=== PATIENT | female | born 1950 | race Caucasian/White ===

== ENCOUNTER → 2016-04-01 | Outpatient (CLI) | payer BC ==
[2016-04-01 18:09] VITALS: BP 107/67
== END ==
LOC: MHUC 17:02
PROVIDERS: ATTEND Physician Assistant Medical
DX: J40 Bronchitis, not specified as acute or chronic (principal)
CPT/HCPCS: 99213

== ENCOUNTER 2016-04-05 10:31 | Inpatient (IN) | payer BC, MEDICARE ==
[~2016-04-05] VITALS: Ht 157.5 cm; Wt 54.7 kg
[2016-04-05] MEDS ORDERED: ONDANSETRON 2 MG/ML (Z0FRAN) 2 ML VIAL IV PRN (10:45)
[2016-04-05] MEDS ORDERED: ACETAMINOPHEN 325 MG TAB (TYLENOL) PO PRN (10:45)
[2016-04-05] MEDS ORDERED: IBUPROFEN 600 MG (MOTRIN) TAB PO PRN (10:45)
[2016-04-05 10:58] VITALS: BP 109/68
[2016-04-05] MEDS ORDERED: POTASSIUM CL IVPB 50 ML IV ONE (11:00)
[2016-04-05] MEDS ORDERED: cefTRIAXone SODIUM 1,000 MG in SODIUM CHLORIDE 50 ML IV SCH (11:00)
[2016-04-05 11:01] VITALS: BP 109/68
--- NOTE | 2016-04-05 11:45 | NUR ---
Pt arrives per w/c from office for admission of pneumonia & low potassium. Pt alert, oriented x 4, speech clear, able to transfer independently to bed. States "has been feeling ill off & on for 2 weeks, and I'm just not getting better". Lungs clear, diminished, no wheezing heard. IV began into right hand w/difficulty. Pt states she does not use oxygen or respiratory equipment at home, normally very active. Admission assessment completed, pt oriented to room and call light. Will call for needs.
[2016-04-05] MEDS ORDERED: AZITHROMYCIN VIAL 500 MG in SODIUM CHLORIDE 250 ML IV SCH (12:00)
[2016-04-05] MEDS: POTASSIUM CHLORIDE ER 10 MEQ CAPSULE PO SCH ×2 (12:41→17:45)
--- NOTE | 2016-04-05 13:48 | NUR ---
IS instructed, Pt achieves 1500 ml with good effort and technique. She understands the importance of IS and reasons to continue on her own.
[2016-04-05 15:44] VITALS: BP 109/62
--- NOTE | 2016-04-05 16:23 | NUR ---
MED REC COMPLETE--current med list obtained from external med history application, patient interview, and list from patient's PCP ([id number]). Completed by Addie Mercer, Pharm. D. Candidate 2017.
--- NOTE | 2016-04-05 19:37 | NUR ---
Patient has remained on room air throughout the shift.
[2016-04-05 20:21] VITALS: BP 116/63
[2016-04-06 00:22] VITALS: BP 122/74
[2016-04-06 03:41] VITALS: BP 102/68
--- NOTE | 2016-04-06 06:17 | NUR ---
Uneventful shift leader. Pt rests w/o complaints. NS infusing without difficulty. Resp even and non labored on RA. Intermittent cough noted.
[2016-04-06 06:43] LABS: BASOPHILS % (AUTO) 0 % (0-2); EOSINOPHILS # (AUTO) 0.1 10^3uL; EOSINOPHILS % (AUTO) 1 % (0-4); LYMPHOCYTES # (AUTO) 1.3 X10^3; MEAN CORPUSCULAR HEMOGLOBIN 29.9 PG (26.0-34.0); MEAN CORPUSCULAR HGB CONC 34.9 g/dL (31.0-37.0); MEAN CORPUSCULAR VOLUME 86 FL (80-100); MEAN PLATELET VOLUME 10.1 FL (6.0-9.5); MONOCYTES # (AUTO) 1.5 X10^3; MONOCYTES % (AUTO) 13 % (3-11); NEUTROPHILS # (AUTO) 8.5 X10^3; NEUTROPHILS % (AUTO) 73 % (51-67); PLATELET COUNT 371 10^3uL (150-450); WHITE BLOOD COUNT 11.62 10^3uL (4.0-11.0)
[2016-04-06 07:12] LABS: ALBUMIN 2.9 g/dL (3.4-5.0); ANION GAP 13.6 MEQ/L (3-15); CALCULATED IONIZED CALCIUM 3.7 mg/dL (3.8-4.6); TOTAL PROTEIN 6.1 g/dL (6.4-8.5)
[2016-04-06 08:23] VITALS: BP 118/53
[2016-04-06] MEDS: POTASSIUM CHLORIDE ER 10 MEQ CAPSULE PO SCH ×2 (08:39→12:30)
[2016-04-06] MEDS ORDERED: POTASSIUM CHLORIDE ER 20 MEQ TABLET PO ONE (09:20)
[2016-04-06] MEDS ORDERED: NS FLUSH 3 ML PRN IV (09:45)
[2016-04-06] MEDS ORDERED: NS FLUSH 10 ML PRN IV (09:45)
[2016-04-06] MEDS ORDERED: ATORVASTATIN 10 MG (LIPITOR) TABLET PO SCH (10:55)
[2016-04-06] MEDS ORDERED: POTASSIUM GLUCONATE 550 MG PO SCH (10:55)
[2016-04-06] MEDS ORDERED: LEVOFLOXACIN 500 MG TAB (LEVAQUIN) PO SCH (11:08)
[2016-04-06] MEDS ORDERED: ASPIRIN 81 MG CHEW (CHILDREN'S ASA) PO SCH (11:09)
[2016-04-06] MEDS ORDERED: CALCIUM CARBONATE 500 MG + VITAMIN D 200 IU TABLET PO SCH (11:15)
[2016-04-06 11:29] VITALS: BP 105/59
--- NOTE | 2016-04-06 13:37 | NUR ---
Pt dismissed at this time via ambulation accompanied by spouse and Mariposa Negrete CNA. Skin warm, dry, intact. Resprs nonlabored, even on RA. Appreciative of cares.
--- NOTE | 2016-04-06 15:29 | NUR ---
Discharge instructions reviewed with patient and spouse, questions answered, demonstrates understanding. SL removed with catheter tip intact. Belongings gathered. Pharmacy here to review new medications.
[2016-04-06 17:32] LABS: HEPATITIS A ANTIBODY IGM Negative; HEPATITIS B CORE ABY IGM Negative; HEPATITIS B SURFACE ANTIGEN C Negative
[2016-04-06] MEDS ORDERED: POTASSIUM CHLORIDE ER 20 MEQ TABLET PO SCH (18:00)
[2016-04-07] MEDS ORDERED: NS FLUSH 3 ML DAILY IV SCH (09:00)
[2016-04-07 18:14] LABS: EBV NUCLEAR IGG INDEX 0.18 OD Ratio (<0.91)
== END 2016-04-06 15:37 | disposition home or self-care (01) | DRG 195 ==
LOC: MED/SURG 10:34 → INTOOBSV 10:34 → OBSVTOIN 04-06 14:40
PROVIDERS: ADMIT Family Medicine; ATTEND Family Medicine
DX: J18.9 Pneumonia, unspecified organism (principal); R74.0 Nonspecific elevation of levels of transaminase and lactic acid dehydrogenase [LDH]; E87.6 Hypokalemia; E86.0 Dehydration; I95.9 Hypotension, unspecified; I10 Essential (primary) hypertension; E78.5 Hyperlipidemia, unspecified
CPT/HCPCS: 36415; 80053; 80074; 84075; 84132; 84450; 84460; 85025; 86663; 86664; 86665; 87040; 87486; 87581; 87633; 87798

== ENCOUNTER → 2016-04-08 | Outpatient (CLI) | payer BC | LOC: RAD 09:26 | PROVIDERS: ATTEND Family Medicine | DX: R74.8 Abnormal levels of other serum enzymes (principal) | CPT/HCPCS: 76705 ==

== ENCOUNTER → 2016-04-22 | Outpatient (CLI) | payer BC | LOC: RAD 08:30 | PROVIDERS: ATTEND Internal Medicine Nephrology | DX: N18.3 Chronic kidney disease, stage 3 (moderate) (principal) | CPT/HCPCS: 76770 ==